=== PATIENT | male | born 1985 | race Caucasian/White ===

== ENCOUNTER 2016-08-27 21:19 | Emergency (ER) | payer SELFPAY ==
[~2016-08-27 21:19] MED LIST: IBUP-1649 PO
== END 2016-08-28 00:01 | disposition left against medical advice (07) ==
LOC: ER 21:20
DX: Z53.21 Procedure and treatment not carried out due to patient leaving prior to being seen by health care provider (principal)

== ENCOUNTER 2016-12-17 00:27 | Emergency (ER) | payer SELFPAY ==
[~2016-12-17] VITALS: Ht 182.9 cm; Wt 89.0 kg
[2016-12-17] MEDS ORDERED: ONDANSETRON HCL 4MG/2ML VIAL IV STA (00:44)
[2016-12-17] MEDS ORDERED: SODIUM CHLORIDE 0.9% 1,000 ML IV ONE (00:44)
[2016-12-17] MEDS ORDERED: FAMOTIDINE 20MG/2ML VIAL IV STA (00:44)
[2016-12-17 01:11] LABS: BASOPHILS % 0.6 % (0.0-2.0); EOSINOPHILS % 0.8 % (0.0-5.0); HEMATOCRIT. 43.8 % (42.0-52.0); HEMOGLOBIN. 15.1 g/dL (14.0-18.0); LYMPHOCYTES % 11.9 % (20.0-50.0); MEAN CORPUSCULAR HEMOGLOBIN 29.1 pg (28.0-32.0); MEAN CORPUSCULAR VOLUME 84.5 fL (80.0-94.0); MEAN PLATELET VOLUME 9.4 fl (7.4-10.4); MONOCYTES % 4.9 % (2.0-8.0); NEUTROPHILS % 81.8 % (40.0-76.0); PLATELET 245 x1000/uL (130-400); RED BLOOD CELL COUNT 5.19 mill/uL (4.7-6.1); RED CELL DISTRIBUTION WIDTH 13.1 % (11.6-14.6)
[2016-12-17 01:13] LABS: CHLORIDE 103 mEq/L (98-107)
[2016-12-17 01:16] LABS: INR 1.1; PROTHROMBIN TIME 11.7 sec (9.4-11.6)
[2016-12-17 01:22] LABS: CARBON DIOXIDE 26 mEq/L (21-32)
[2016-12-17] MEDS ORDERED: MORPHINE SULFATE 4 MG/ML CPJ (NOT FOR IM USE) IV ONE (02:15)
[2016-12-17] MEDS ORDERED: METOCLOPRAMIDE HCL 10MG/2ML VIAL IV ONE (05:00)
[2016-12-17 05:27] VITALS: BP 133/75
== END 2016-12-17 05:51 | disposition home or self-care (01) ==
LOC: ER 03:23
DX: K92.2 Gastrointestinal hemorrhage, unspecified (principal); R11.2 Nausea with vomiting, unspecified; F17.210 Nicotine dependence, cigarettes, uncomplicated; Z88.6 Allergy status to analgesic agent
CPT/HCPCS: 36415; 80053; 83690; 85025; 85610; 86850; 86900; 86901; 96361; 96374; 96375; 99284; J2270; J2405; J2765; J3490; J7030; Z7610

== ENCOUNTER 2017-04-13 17:41 | Emergency (ER) | payer MEDICAID ==
[~2017-04-13] VITALS: Ht 182.9 cm; Wt 77.0 kg
[2017-04-13] MEDS ORDERED: KETOROLAC 30MG/ML VIAL IV ONE (19:45)
[2017-04-13] MEDS ORDERED: SODIUM CHLORIDE 0.9% 1,000 ML IV ONE ×2 (19:45→22:15)
[2017-04-13] MEDS ORDERED: ONDANSETRON HCL 4MG/2ML VIAL IV ONE ×2 (19:45→22:15)
[2017-04-13] MEDS ORDERED: FAMOTIDINE 20MG/2ML VIAL IV ONE (19:45)
[2017-04-13 21:05] LABS: BASOPHILS % 0.2 % (0.0-2.0); EOSINOPHILS % 0.1 % (0.0-5.0); HEMATOCRIT. 46.4 % (42.0-52.0); HEMOGLOBIN. 15.8 g/dL (14.0-18.0); LYMPHOCYTES % 7.3 % (20.0-50.0); MEAN CORPUSCULAR HEMOGLOBIN 29.1 pg (28.0-32.0); MEAN CORPUSCULAR VOLUME 85.2 fL (80.0-94.0); MEAN PLATELET VOLUME 8.9 fl (7.4-10.4); MONOCYTES % 3.7 % (2.0-8.0); NEUTROPHILS % 88.7 % (40.0-76.0); PLATELET 289 x1000/uL (130-400); RED BLOOD CELL COUNT 5.45 mill/uL (4.7-6.1); RED CELL DISTRIBUTION WIDTH 13.2 % (11.6-14.6)
[2017-04-13 21:11] LABS: INR 1.1; PROTHROMBIN TIME 11.8 sec (9.4-11.6)
[2017-04-13 21:15] LABS: CARBON DIOXIDE 28 mEq/L (21-32); CHLORIDE 101 mEq/L (98-107)
[2017-04-13 21:56] LABS: CLARITY URINE CLEAR (CLEAR); COLOR URINE DARK YELLOW (YELLOW); KETONES URINE 4+ (NEGATIVE); LEUKOCYTE ESTERASE URINE NEGATIVE (NEGATIVE); NITRITE URINE NEGATIVE (NEGATIVE); OCCULT BLOOD URINE NEGATIVE (NEGATIVE); PH URINE >=9.0 (4.5-8.0); PROTEIN URINE 3+ (NEGATIVE); SPECIFIC GRAVITY URINE 1.033 (1.005-1.030)
[2017-04-13] MEDS ORDERED: METOCLOPRAMIDE HCL 10MG/2ML VIAL IV ONE (22:15)
[2017-04-13] MEDS ORDERED: PANTOPRAZOLE SODIUM 40 MG/VIAL IV ONE (22:15)
[2017-04-13] MEDS ORDERED: MAGNESIUM/ALUMINUM HYDROXIDE/SIMETHICONE 30ML UDC PO ONE (22:15)
[2017-04-13] MEDS ORDERED: VISCOUS LIDOCAINE 2% 15 ML UDC PO STA (22:16)
[2017-04-14] MEDS ORDERED: MORPHINE SULFATE 4 MG/ML CPJ (NOT FOR IM USE) IV ONE ×2 (00:30)
[2017-04-14 05:43] LABS: *AMPHETAMINES SCREEN URINE NEGATIVE (NEGATIVE); *BARBITURATES SCREEN URINE NEGATIVE (NEGATIVE); *BENZODIAZEPINES SCREEN URINE NEGATIVE (NEGATIVE); *COCAINE SCREEN URINE NEGATIVE (NEGATIVE); CANNABINOID URINE SCREEN NEGATIVE (NEGATIVE); METHADONE URINE SCREEN NEGATIVE (NEGATIVE); OPIATES URINE SCREEN NEGATIVE (NEGATIVE); PHENCYCLIDINE URINE SCREEN NEGATIVE (NEGATIVE)
[2017-04-14 06:24] VITALS: BP 119/74
== END 2017-04-14 06:30 | disposition home or self-care (01) ==
LOC: ER 18:06
DX: K92.2 Gastrointestinal hemorrhage, unspecified (principal); Z88.6 Allergy status to analgesic agent
CPT/HCPCS: 36415; 76705; 80053; 80305; 81001; 83690; 85025; 85610; 96361; 96374; 96375; 96376; 99285; G0482; J2405; J2765; J3490; J7030; Z7610